=== PATIENT | male | born 1995 | race Caucasian/White ===

== ENCOUNTER 2017-01-26 06:15 | Emergency (ER) | payer OTHER ==
--- NOTE | 2017-01-26 07:21 | ED ORDER SUMMARY ---
..... Patient: PEYTON GRAHAM OrderSheet [facility] VisitID: [id number] [place] [address] 21y, M Registration Date/Time: 01/26/2017 ORDER SHEET Weight: 77.1 kg (stated) Allergies: No Known Drug Allergy GENERAL ORDERS: Chest 2V Urgent (06:01/26/2017 PHutchinson DO) (Ack 6:31 IJurca ER Tech1) (7:12 LSullivan R.N.) Color Blender (Continuous) (:01/26/2017 PHutchinson DO) (6:31 DDavis R.N.) (Ack 6:31 IJurca ER Tech1) UA-Culture if indicated Urgent (:01/26/2017 PHutchinson DO) (Ack 6:31 IJurca ER Tech1) (Cancelled: Physician Order7:23 RMarsden R.N.) Cardiac Panel Stat (:01/26/2017 PHutchinson DO) (6:31 DDavis R.N.) (Ack 6:31 IJurca ER Tech1) BNP Urgent (:01/26/2017 PHutchinson DO) (6:31 DDavis R.N.) (Ack 6:31 IJurca ER Tech1) Amylase Urgent (:01/26/2017 PHutchinson DO) (6:31 DDavis R.N.) (Ack 6:31 IJurca ER Tech1) TSH Urgent (:01/26/2017 PHutchinson DO) (6:31 DDavis R.N.) (Ack 6:31 IJurca ER Tech1) ESR Urgent (:01/26/2017 PHutchinson DO) (6:31 DDavis R.N.) (Ack 6:31 IJurca ER Tech1) Pulse oximeter (:01/26/2017 PHutchinson DO) (6:31 DDavis R.N.) (Ack 6:31 IJurca ER Tech1) EKG - ER Stat (:01/26/2017 PHutchinson DO) (6:31 DDavis R.N.) (Ack 6:31 IJurca ER Tech1) Vitals (06:28 01/26/2017 [facility]) (6:31 DDavis R.N.) (Ack 6:31 IJurca ER Tech1) CRP Urgent (06:41 01/26/2017 [facility]) (Ack 6:43 IJurca ER Tech1) (6:57 DDavis R.N.) MEDICATION ORDERS: Aspirin PO 325 mg (NOW) (06:28 01/26/2017 [facility]) (Ack 6:29 RCollier R.N.) (6:34 RCollier R.N.) IV FLUIDS: IV NS : initial bolus 500 mL (1000 mL/hr), then 250 mL/hr for X2 (NOW) (06:28 01/26/2017 [facility]) (Ack 6:29 RCollier R.N.) (6:34 RCollier R.N.) ORDER SHEET NOTES: [Electronically signed by Caprice Cherry R.N. (07:39 01/26/2017)] [Electronically signed by Emeka Kent DO (07:44 01/26/2017)] [Electronically locked/signed by Caprice Cherry R.N. (07:39 01/26/2017)]
--- NOTE | 2017-01-26 07:21 | ED CLINICAL REPORT ---
Clinical Report - Physicians/Mid Levels [facility] [address] [place] [address] 01/26/2017 6:17 Patient: PEYTON GRAHAM Time Seen: 06:27. Arrived- By private vehicle. Historian- patient. HISTORY OF PRESENT ILLNESS Chief Complaint: CHEST DISCOMFORT. At its maximum, severity described as moderate. When seen in the E.D., severity described as mild. Modifying factors- worsened by exertion, movement and deep breaths. Relieved by rest. This started today and is still present. It was gradual in onset and has been waxing/waning. Onset during rest and light activity. It is described as sharp and well localized and it is described as located in the left chest area. No radiation. No nausea or vomiting. He has had difficulty breathing. Similar symptoms previously: Recent medical care: The patient was seen recently at another facility in a clinic. Diagnosis: (pericarditis). REVIEW OF SYSTEMS No fever, chills, pedal edema, calf pain or fainting episodes. No headache, sore throat, blurred vision, abdominal pain or black stools. No difficulty with urination, skin rash, joint pain or bloody stools. The patient has had a mild cough. All systems otherwise negative, except as recorded above. PAST HISTORY See nurses notes. Pericarditis. Surgeries: Appendectomy. SOCIAL HISTORY Never smoker. No alcohol use or drug use. Residence: recently "lost about all my family" Is a local resident. ADDITIONAL NOTES The nursing notes have been reviewed. PHYSICAL EXAM Vital Signs: 01/26/2017 06:24 BP: 140/92. HR: 74. RR: 15. O2 saturation: 100%. Temp: 97.7 F. Pain level now: 5/10. Appearance: Alert. Oriented X3. Anxious. Patient in mild distress. Eyes: Pupils equal, round and reactive to light. Eyes normal inspection. No scleral icterus or pale conjunctivae. ENT: Pharynx normal. No tonsillar exudate. The mucous membranes are not dry. Neck: Normal inspection. Neck supple. No JVD, carotid bruit, meningeal signs, lymphadenopathy or thyromegaly. CVS: Normal heart rate and rhythm. Heart sounds normal. Pulses normal. Respiratory: No respiratory distress. Chest pain reproducible with palpation of the anterior chest wall (left side). Breath sounds normal. No decreased air movement, rales, rhonchi, wheezes or prolonged expiration. Abdomen: Soft and nontender. No mass. Back: Normal external inspection. No CVA tenderness. Skin: Skin warm and dry. Normal skin color. No rash. Normal skin turgor. Extremities: Extremities exhibit normal ROM. No calf tenderness. No lower extremity edema. Neuro: Oriented X 3. No motor deficit. LABS, X-RAYS, AND EKG EKG: EKG time: (06:28). Normal sinus rhythm. Rate: 75. Normal P waves. Normal MIGUELANGEL. Normal QRS complex. Normal axis. J-point elevation in lead II, III, aVF, V3, V4, V5 and V6 (inferolaterally - consider pericarditis). The study has been interpreted contemporaneously by me. The EKG appears to be a good tracing. Rhythm Strip #1: Normal sinus rhythm. Regular rhythm. Narrow QRS complexes. No ectopy. Chest X-ray: No acute disease. Normal lung markings present. Normal heart size. Mediastinum normal. Great vessels normal. Soft tissues normal. No infiltrate. Views: PA and lateral. Technique: good. The X-rays were interpreted contemporaneously by me. A comparison with prior films reveals that the findings are unchanged (no change from CXR done 12/30/2016). Laboratory Tests: CBC w Diff: (AMI: 01/26/2017 06:25) ( MsgRcvd 01/26/2017 06:53) Final results Test Result Flag Units (Reference) WHITE BLOOD COUNT 7.6 K/uL (4.5-11.5) RED BLOOD COUNT 4.89 M/uL (4.50-5.90) HEMOGLOBIN 14.3 gm/dL (13.5-17.5) HEMATOCRIT 42.6 % (41.0-53.0) MEAN CELL VOLUME 87 fL (80-100) MEAN CORPUSCULAR HGB 29 pg (26-34) MEAN CORPUSCULAR HGB CONC 34 g/dL (31-37) RED CELL DISTRIBUTION WIDTH 13.2 % (11.6-14.8) PLATELET COUNT 228 K/uL (150-400) NEUTROPHIL % 49.4 L % (50-75) LYMPH % 38.2 % (25-40) MONO % 10.1 % (3-14) EOSINOPHIL % 1.9 % (0-4) BASOPHIL % 0.4 % (0-2) SED RATE WESTERGREN 1 mm/hr (0-15) [id number]: (AMI: 01/26/2017 06:25) ( [facility] 01/26/2017 07:01) Final results Test Result Flag Units (Reference) C-REACTIVE PROTEIN < 0.2 mg/dL (0.0-0.9) BNP: (AMI: 01/26/2017 06:25) ( [facility] 01/26/2017 06:52) Final results Test Result Flag Units (Reference) B-TYPE NATRIURETIC PEPTIDE < 5.0 L pg/ml (5-100) CHEM 13 PANEL: (AMI: 01/26/2017 06:25) ( [facility] 01/26/2017 07:01) Final results Test Result Flag Units (Reference) GLUCOSE 90 mg/dL (70-110) BUN 12 mg/dL (7-18) CREATININE 0.8 mg/dL (0.6-1.3) Estimated GFR >60 mL/min Estimated GFR- >60 mL/min Note: Persistent reduction over 3 months in eGFR<60 mL/min/1.73 m2 defines CKD. Patients with eGFR values>=60 mL/min/1.73 m2 may also have CKD if evidence ofpersistent proteinuria. Additional information may be foundat www.kidney.org. SODIUM 143 mmol/L (136-145) POTASSIUM 3.7 mmol/L (3.5-5.1) CHLORIDE 106 mmol/L (98-107) CARBON DIOXIDE 30 mmol/L (21-32) CALCIUM 9.4 mg/dL (8.5-10.1) TOTAL PROTEIN 7.6 g/dL (6.4-8.2) ALBUMIN 4.6 g/dL (3.3-5.0) BILIRUBIN, TOTAL 0.4 mg/dL (0.0-1.0) ALKALINE PHOSPHATASE 86 U/L (46-116) AST (SGOT) 12 L U/L (15-37) ALT (SGPT) 21 U/L (12-78) MAGNESIUM 2.0 mg/dL (1.8-2.4) AMYLASE 42 U/L (25-115) CPK 95 U/L (24-260) TROPONIN I <0.05 L ng/mL (0.00-1.5) TROPONIN REFERENCE RANGE:<0.1 NEGATIVE0.1-1.5 INDETERMINANT>1.5 POSITIVE THYROID STIMULATING HORMONE 8.752 H uIU/mL (0.34-3.74) . Pulse Oximetry: 01/26/2017 06:24 O2 saturation: 100%. (FIO2 - room air). Interpretation: normal. PROGRESS AND PROCEDURES Course of Care: Labs all normal now including CRP and ESR. ECG findings are c/w early repol. CXR is unchanged and cardiac silhouette / mediastinum is normal. Doubt pericarditis now. He has definite chest wall tenderness on exam (which seems to reproduce his subjective complaint). Patient/family counseled. Old ED records reviewed. Disposition: Discharged. Condition: stable and improved. CLINICAL IMPRESSION Atypical chest pain .12 lead EKG performed. Chest wall pain .12 lead EKG performed. Essential hypertension. INSTRUCTIONS Drink plenty of fluids. Warnings: Further evaluation is necessary. It is very important to follow up with a physician. GENERAL WARNINGS: Return or contact your physician immediately if your condition worsens or changes unexpectedly, if not improving as expected, or if other problems arise. Prescription Medications: Ibuprofen 600mg tablets: take 1 tablet orally every 8 hours as needed for pain. Dispense thirty (30). No refills. Follow-up: [facility] is [facility] walk-in clinic available 7 days per week for your convenience in about two days. Screening today revealed the patient's blood pressure to be in the hypertensive range. The patient should follow up with a primary care provider for blood pressure management. (Electronically signed by Emeka Kent DO 01/26/2017 7:44)
--- NOTE | 2017-01-26 07:21 | ED NURSING NOTES ---
Clinical Report - Nurses [facility] [place] [address] 01/26/2017 6:17 [id number] Triage time 06:25. Acuity: LEVEL 3. Chief Complaint: CHEST PAIN. Alert. --06:28 Ancelmo Waters R.N. 06:24 01/26/17. BP: 140/92. HR: 74. RR: 15. O2 saturation: 100% on room air. Temp: 97.7 F (oral). Pain level now: 03/01. --06:28 Ancelmo Waters R.N. Weight: 77.1 kg stated. Height/Length: 78 inches Per Patient. BMI: 19.6. --06:29 Ancelmo Waters R.N. Medications Naproxen Oral. --06:25 Ancelmo Waters R.N. Allergies No Known Drug Allergy. --06:25 Ancelmo Waters R.N. History Arrived by private vehicle. Historian: patient. This started today. He has had difficulty breathing. SOCIAL HX: Never smoker. No alcohol use or drug use. SELF HARM ASSESSMENT: A self harm assessment was performed. The patient answered "no" to the question "Do you have thoughts of harming or killing yourself?" and "Are you here because you tried to hurt yourself?". He has been placed under supervision. FALL RISK ASSESSMENT: Fall risk assessment completed. No fall risk identified. NUTRITIONAL RISK ASSESSMENT: The nutritional risk assessment revealed no deficiencies. FUNCTIONAL ASSESSMENT: Functional assessment: no impairments noted. LEARNING NEEDS ASSESSMENT: The learning needs assessment revealed no barriers. SKIN INTEGRITY ASSESSMENT: Skin integrity risk assessment completed. No skin integrity risk identified. --06:28 Ancelmo Waters R.N. PROBLEMS: Pericarditis. --06:26 Ancelmo Waters R.N. ADDITIONAL SURGERIES: Appendectomy. --06:26 Ancelmo Waters R.N. Interventions ID band on patient. To treatment room. --06:28 Jt, Ancelmo, R.N. PHYSICAL ASSESSMENT Ambulatory to room. GENERAL / NEURO / PSYCH: Alert. Oriented X 4. Appears anxious. ( pt states having chest pain starting around 0300 this morning and states that it feels similar to a previous episode of pericarditis.). HEENT: Mucous membranes are pink. RESPIRATORY: Respirations not labored. Left upper costochondral tenderness. The tenderness is well-localized. Breath sounds within normal limits. CVS: Normal sinus rhythm noted. Heart sounds within normal limits. Capillary refill less than 2 seconds. GI / : Abdomen soft and nontender. SKIN: Skin is warm and dry. Normal skin turgor. Skin is non-tender. --06:31 Ancelmo Waters R.N. NURSING PROGRESS NOTES case monitor, pulse oximeter and NIBP monitor placed on patient. Patient gowned. Head of bed elevated. Two patient identifiers checked. Call light placed in reach. Side rails up x 1. Bed placed in lowest position. Brakes of bed on. Patient ready for evaluation- chart flagged. Patient waiting for evaluation. --06:29 Ancelmo Waters R.N. 06:29 01/26/2017 Site #1 started via IV in the right antecubital space with an 20g angiocath, with aseptic technique and good blood return; one attempt. Blood drawn: rainbow set. Labeled in the presence of the patient and sent to the lab. Saline lock flushed with 10 mL saline. --06:29 Danielle Read R.N. ( Patient NSR on school bus monitor). --06:32 Ancelmo Waters R.N. 06:32 01/26/2017 Started bag #1 1000 mL IV Fluids IV NS (Saline); at 1000 mL/hr via site #1 via IV pump. Allergies verified and confirmed 5 rights. IV patency established. IV site checked: no pain, redness, or swelling. IV flushed thoroughly pre- and post-medication administration. --06:34 Danielle Read R.N. 06:34 01/26/2017 Aspirin PO Tablets 325 mg given. Allergies verified and confirmed 5 rights. --06:34 Danielle Read R.N. ( urinal placed at bedside, sample requested). --06:36 Danielle Read R.N. EKG time: (0628 AM). EKG was ordered, performed by a tech and shown to the ED physician. --06:57 Bernice Garcia ( Report given to Caprice Stanley RN.). --07:02 Ancelmo aWters R.N. ( Report also given to Nathaly Louis RN). --07:03 Ancelmo Waters R.N. 07:04 01/26/17. Care transferred and report received (from DAWOOD Tyson). --07:04 Caprice Cherry R.N. 07:14 01/26/2017 IV Fluids IV NS via IV site #1 Rate Changed: bag #1 decreased to 250 mL/hr via IV pump. IV patency established. IV site checked: no pain, redness, or swelling. IV flushed thoroughly. Confirmed 5 Rights. --07:14 Caprice Cherry R.N. 07:14 01/26/17. --07:14 Caprice Cherry R.N. 07:01/26/17. BP: 128/78. HR: 74. RR: 14. O2 saturation: 97%. Temp: deferred. Pain level now: 11/01. --07:15 Caprice Cherry R.N. 07:15 01/26/17. --07:15 Caprice Cherry R.N. 07:38 01/26/2017 IV Fluids IV NS Discontinued: bag #1 discontinued upon discharge. Total amount infused: 800 mL. IV patency established. IV site checked: no pain, redness, or swelling. IV flushed thoroughly. --07:38 Caprice Cherry R.N. DISPOSITION / DISCHARGE 07:14 01/26/17. BP: 128/78. HR: 74. RR: 14. O2 saturation: 97%. Temp: deferred. Pain level now: 11/01. --07:35 Caprice Cherry R.N. 07:28 01/26/2017 Site #1 removed upon discharge. Manual pressure and bandaid applied. --07:38 Caprice Cherry R.N. 07:35 01/26/17. No learning barriers present. Discharge instructions provided and reviewed with the patient. Reviewed warnings. Reviewed medication(s). Treatments reviewed. Reviewed referrals. Reviewed diet. Patient verbalized understanding. Written instructions provided in Icelandic. The patient was discharged by the physician. He was discharged home. He left the Emergency Department ambulatory and via private vehicle. --07:35 Caprice Cherry R.N. 07:38 01/26/17. --07:38 Caprice Cherry R.N. Locked/Released at 01/26/2017 7:39 by Caprice Cherry R.N.
--- NOTE | 2017-01-26 07:21 | ED NURSING NOTES ---
Clinical Report - Nurses [facility] [place] [address] 01/26/2017 6:17 [id number] Triage time 06:25. Acuity: LEVEL 3. Chief Complaint: CHEST PAIN. Alert. --06:28 Ancelmo Waters R.N. 06:24 01/26/17. BP: 140/92. HR: 74. RR: 15. O2 saturation: 100% on room air. Temp: 97.7 F (oral). Pain level now: 03/01. --06:28 Ancelmo Waters R.N. Weight: 77.1 kg stated. Height/Length: 78 inches Per Patient. BMI: 19.6. --06:29 Ancelmo Waters R.N. Medications Naproxen Oral. --06:25 Ancelmo Waters R.N. Allergies No Known Drug Allergy. --06:25 Ancelmo Waters R.N. History Arrived by private vehicle. Historian: patient. This started today. He has had difficulty breathing. SOCIAL HX: Never smoker. No alcohol use or drug use. SELF HARM ASSESSMENT: A self harm assessment was performed. The patient answered "no" to the question "Do you have thoughts of harming or killing yourself?" and "Are you here because you tried to hurt yourself?". He has been placed under supervision. FALL RISK ASSESSMENT: Fall risk assessment completed. No fall risk identified. NUTRITIONAL RISK ASSESSMENT: The nutritional risk assessment revealed no deficiencies. FUNCTIONAL ASSESSMENT: Functional assessment: no impairments noted. LEARNING NEEDS ASSESSMENT: The learning needs assessment revealed no barriers. SKIN INTEGRITY ASSESSMENT: Skin integrity risk assessment completed. No skin integrity risk identified. --06:28 Ancelmo Waters R.N. PROBLEMS: Pericarditis. --06:26 Ancelmo Waters R.N. ADDITIONAL SURGERIES: Appendectomy. --06:26 Ancelmo Waters R.N. Interventions ID band on patient. To treatment room. --06:28 Jt, Ancelmo, R.N. PHYSICAL ASSESSMENT Ambulatory to room. GENERAL / NEURO / PSYCH: Alert. Oriented X 4. Appears anxious. ( pt states having chest pain starting around 0300 this morning and states that it feels similar to a previous episode of pericarditis.). HEENT: Mucous membranes are pink. RESPIRATORY: Respirations not labored. Left upper costochondral tenderness. The tenderness is well-localized. Breath sounds within normal limits. CVS: Normal sinus rhythm noted. Heart sounds within normal limits. Capillary refill less than 2 seconds. GI / : Abdomen soft and nontender. SKIN: Skin is warm and dry. Normal skin turgor. Skin is non-tender. --06:31 Ancelmo Waters R.N. NURSING PROGRESS NOTES laboratory monitor, pulse oximeter and NIBP monitor placed on patient. Patient gowned. Head of bed elevated. Two patient identifiers checked. Call light placed in reach. Side rails up x 1. Bed placed in lowest position. Brakes of bed on. Patient ready for evaluation- chart flagged. Patient waiting for evaluation. --06:29 Ancelmo Waters R.N. 06:29 01/26/2017 Site #1 started via IV in the right antecubital space with an 20g angiocath, with aseptic technique and good blood return; one attempt. Blood drawn: rainbow set. Labeled in the presence of the patient and sent to the lab. Saline lock flushed with 10 mL saline. --06:29 Danielle Read R.N. ( Patient NSR on media monitor). --06:32 Ancelmo Waters R.N. 06:32 01/26/2017 Started bag #1 1000 mL IV Fluids IV NS (Saline); at 1000 mL/hr via site #1 via IV pump. Allergies verified and confirmed 5 rights. IV patency established. IV site checked: no pain, redness, or swelling. IV flushed thoroughly pre- and post-medication administration. --06:34 Danielle Read R.N. 06:34 01/26/2017 Aspirin PO Tablets 325 mg given. Allergies verified and confirmed 5 rights. --06:34 Danielle Read R.N. ( urinal placed at bedside, sample requested). --06:36 Danielle Read R.N. EKG time: (0628 AM). EKG was ordered, performed by a tech and shown to the ED physician. --06:57 Bernice Garcia ( Report given to Caprice Stanley RN.). --07:02 Ancelmo Waters R.N. ( Report also given to Nathaly Louis RN). --07:03 Ancelmo Waters R.N. 07:04 01/26/17. Care transferred and report received (from DAWOOD yTson). --07:04 Caprice Cherry R.N. 07:14 01/26/2017 IV Fluids IV NS via IV site #1 Rate Changed: bag #1 decreased to 250 mL/hr via IV pump. IV patency established. IV site checked: no pain, redness, or swelling. IV flushed thoroughly. Confirmed 5 Rights. --07:14 Caprice Cherry R.N. 07:14 01/26/17. --07:14 Caprice Cherry R.N. 07:01/26/17. BP: 128/78. HR: 74. RR: 14. O2 saturation: 97%. Temp: deferred. Pain level now: 11/01. --07:15 Caprice Cherry R.N. 07:15 01/26/17. --07:15 Caprice Cherry R.N. 07:38 01/26/2017 IV Fluids IV NS Discontinued: bag #1 discontinued upon discharge. Total amount infused: 800 mL. IV patency established. IV site checked: no pain, redness, or swelling. IV flushed thoroughly. --07:38 Caprice Cherry R.N. DISPOSITION / DISCHARGE 07:14 01/26/17. BP: 128/78. HR: 74. RR: 14. O2 saturation: 97%. Temp: deferred. Pain level now: 11/01. --07:35 Caprice Cherry R.N. 07:28 01/26/2017 Site #1 removed upon discharge. Manual pressure and bandaid applied. --07:38 Caprice Cherry R.N. 07:35 01/26/17. No learning barriers present. Discharge instructions provided and reviewed with the patient. Reviewed warnings. Reviewed medication(s). Treatments reviewed. Reviewed referrals. Reviewed diet. Patient verbalized understanding. Written instructions provided in [place] Islander. The patient was discharged by the physician. He was discharged home. He left the Emergency Department ambulatory and via private vehicle. --07:35 Caprice Cherry R.N. 07:38 01/26/17. --07:38 Caprice Cherry R.N. Locked/Released at 01/26/2017 7:39 by Caprice Cherry R.N.
--- NOTE | 2017-01-26 07:21 | ED ORDER SUMMARY ---
..... Patient: PEYTON GRAHAM OrderSheet [facility] VisitID: [id number] [place] [address] 21y, M Registration Date/Time: 01/26/2017 ORDER SHEET Weight: 77.1 kg (stated) Allergies: No Known Drug Allergy GENERAL ORDERS: Chest 2V Urgent (06:01/26/2017 PHutchinson DO) (Ack 6:31 IJurca ER Tech1) (7:12 LSullivan R.N.) Dairy Nutritionist (Continuous) (:01/26/2017 PHutchinson DO) (6:31 DDavis R.N.) (Ack 6:31 IJurca ER Tech1) UA-Culture if indicated Urgent (:01/26/2017 PHutchinson DO) (Ack 6:31 IJurca ER Tech1) (Cancelled: Physician Order7:23 RMarsden R.N.) Cardiac Panel Stat (:01/26/2017 PHutchinson DO) (6:31 DDavis R.N.) (Ack 6:31 IJurca ER Tech1) BNP Urgent (:01/26/2017 PHutchinson DO) (6:31 DDavis R.N.) (Ack 6:31 IJurca ER Tech1) Amylase Urgent (:01/26/2017 PHutchinson DO) (6:31 DDavis R.N.) (Ack 6:31 IJurca ER Tech1) TSH Urgent (:01/26/2017 PHutchinson DO) (6:31 DDavis R.N.) (Ack 6:31 IJurca ER Tech1) ESR Urgent (:01/26/2017 PHutchinson DO) (6:31 DDavis R.N.) (Ack 6:31 IJurca ER Tech1) Pulse oximeter (:01/26/2017 PHutchinson DO) (6:31 DDavis R.N.) (Ack 6:31 IJurca ER Tech1) EKG - ER Stat (:01/26/2017 PHutchinson DO) (6:31 DDavis R.N.) (Ack 6:31 IJurca ER Tech1) Vitals (06:28 01/26/2017 [facility]) (6:31 DDavis R.N.) (Ack 6:31 IJurca ER Tech1) CRP Urgent (06:41 01/26/2017 [facility]) (Ack 6:43 IJurca ER Tech1) (6:57 DDavis R.N.) MEDICATION ORDERS: Aspirin PO 325 mg (NOW) (06:28 01/26/2017 [facility]) (Ack 6:29 RCollier R.N.) (6:34 RCollier R.N.) IV FLUIDS: IV NS : initial bolus 500 mL (1000 mL/hr), then 250 mL/hr for X2 (NOW) (06:28 01/26/2017 [facility]) (Ack 6:29 RCollier R.N.) (6:34 RCollier R.N.) ORDER SHEET NOTES: [Electronically signed by Caprice Cherry R.N. (07:39 01/26/2017)] [Electronically signed by Emeka Kent DO (07:44 01/26/2017)] [Electronically locked/signed by Caprice Cherry R.N. (07:39 01/26/2017)]
--- NOTE | 2017-01-26 07:21 | ED CLINICAL REPORT ---
Clinical Report - Physicians/Mid Levels [facility] [address] [place] [address] 01/26/2017 6:17 Patient: PEYTON GRAHAM Time Seen: 06:27. Arrived- By private vehicle. Historian- patient. HISTORY OF PRESENT ILLNESS Chief Complaint: CHEST DISCOMFORT. At its maximum, severity described as moderate. When seen in the E.D., severity described as mild. Modifying factors- worsened by exertion, movement and deep breaths. Relieved by rest. This started today and is still present. It was gradual in onset and has been waxing/waning. Onset during rest and light activity. It is described as sharp and well localized and it is described as located in the left chest area. No radiation. No nausea or vomiting. He has had difficulty breathing. Similar symptoms previously: Recent medical care: The patient was seen recently at another facility in a clinic. Diagnosis: (pericarditis). REVIEW OF SYSTEMS No fever, chills, pedal edema, calf pain or fainting episodes. No headache, sore throat, blurred vision, abdominal pain or black stools. No difficulty with urination, skin rash, joint pain or bloody stools. The patient has had a mild cough. All systems otherwise negative, except as recorded above. PAST HISTORY See nurses notes. Pericarditis. Surgeries: Appendectomy. SOCIAL HISTORY Never smoker. No alcohol use or drug use. Residence: recently "lost about all my family" Is a local resident. ADDITIONAL NOTES The nursing notes have been reviewed. PHYSICAL EXAM Vital Signs: 01/26/2017 06:24 BP: 140/92. HR: 74. RR: 15. O2 saturation: 100%. Temp: 97.7 F. Pain level now: 5/10. Appearance: Alert. Oriented X3. Anxious. Patient in mild distress. Eyes: Pupils equal, round and reactive to light. Eyes normal inspection. No scleral icterus or pale conjunctivae. ENT: Pharynx normal. No tonsillar exudate. The mucous membranes are not dry. Neck: Normal inspection. Neck supple. No JVD, carotid bruit, meningeal signs, lymphadenopathy or thyromegaly. CVS: Normal heart rate and rhythm. Heart sounds normal. Pulses normal. Respiratory: No respiratory distress. Chest pain reproducible with palpation of the anterior chest wall (left side). Breath sounds normal. No decreased air movement, rales, rhonchi, wheezes or prolonged expiration. Abdomen: Soft and nontender. No mass. Back: Normal external inspection. No CVA tenderness. Skin: Skin warm and dry. Normal skin color. No rash. Normal skin turgor. Extremities: Extremities exhibit normal ROM. No calf tenderness. No lower extremity edema. Neuro: Oriented X 3. No motor deficit. LABS, X-RAYS, AND EKG EKG: EKG time: (06:28). Normal sinus rhythm. Rate: 75. Normal P waves. Normal MIGUELANGEL. Normal QRS complex. Normal axis. J-point elevation in lead II, III, aVF, V3, V4, V5 and V6 (inferolaterally - consider pericarditis). The study has been interpreted contemporaneously by me. The EKG appears to be a good tracing. Rhythm Strip #1: Normal sinus rhythm. Regular rhythm. Narrow QRS complexes. No ectopy. Chest X-ray: No acute disease. Normal lung markings present. Normal heart size. Mediastinum normal. Great vessels normal. Soft tissues normal. No infiltrate. Views: PA and lateral. Technique: good. The X-rays were interpreted contemporaneously by me. A comparison with prior films reveals that the findings are unchanged (no change from CXR done 12/30/2016). Laboratory Tests: CBC w Diff: (AMI: 01/26/2017 06:25) ( MsgRcvd 01/26/2017 06:53) Final results Test Result Flag Units (Reference) WHITE BLOOD COUNT 7.6 K/uL (4.5-11.5) RED BLOOD COUNT 4.89 M/uL (4.50-5.90) HEMOGLOBIN 14.3 gm/dL (13.5-17.5) HEMATOCRIT 42.6 % (41.0-53.0) MEAN CELL VOLUME 87 fL (80-100) MEAN CORPUSCULAR HGB 29 pg (26-34) MEAN CORPUSCULAR HGB CONC 34 g/dL (31-37) RED CELL DISTRIBUTION WIDTH 13.2 % (11.6-14.8) PLATELET COUNT 228 K/uL (150-400) NEUTROPHIL % 49.4 L % (50-75) LYMPH % 38.2 % (25-40) MONO % 10.1 % (3-14) EOSINOPHIL % 1.9 % (0-4) BASOPHIL % 0.4 % (0-2) SED RATE WESTERGREN 1 mm/hr (0-15) [id number]: (AMI: 01/26/2017 06:25) ( [facility] 01/26/2017 07:01) Final results Test Result Flag Units (Reference) C-REACTIVE PROTEIN < 0.2 mg/dL (0.0-0.9) BNP: (AMI: 01/26/2017 06:25) ( [facility] 01/26/2017 06:52) Final results Test Result Flag Units (Reference) B-TYPE NATRIURETIC PEPTIDE < 5.0 L pg/ml (5-100) CHEM 13 PANEL: (AMI: 01/26/2017 06:25) ( [facility] 01/26/2017 07:01) Final results Test Result Flag Units (Reference) GLUCOSE 90 mg/dL (70-110) BUN 12 mg/dL (7-18) CREATININE 0.8 mg/dL (0.6-1.3) Estimated GFR >60 mL/min Estimated GFR- >60 mL/min Note: Persistent reduction over 3 months in eGFR<60 mL/min/1.73 m2 defines CKD. Patients with eGFR values>=60 mL/min/1.73 m2 may also have CKD if evidence ofpersistent proteinuria. Additional information may be foundat www.[email or web address].org. SODIUM 143 mmol/L (136-145) POTASSIUM 3.7 mmol/L (3.5-5.1) CHLORIDE 106 mmol/L (98-107) CARBON DIOXIDE 30 mmol/L (21-32) CALCIUM 9.4 mg/dL (8.5-10.1) TOTAL PROTEIN 7.6 g/dL (6.4-8.2) ALBUMIN 4.6 g/dL (3.3-5.0) BILIRUBIN, TOTAL 0.4 mg/dL (0.0-1.0) ALKALINE PHOSPHATASE 86 U/L (46-116) AST (SGOT) 12 L U/L (15-37) ALT (SGPT) 21 U/L (12-78) MAGNESIUM 2.0 mg/dL (1.8-2.4) AMYLASE 42 U/L (25-115) CPK 95 U/L (24-260) TROPONIN I <0.05 L ng/mL (0.00-1.5) TROPONIN REFERENCE RANGE:<0.1 NEGATIVE0.1-1.5 INDETERMINANT>1.5 POSITIVE THYROID STIMULATING HORMONE 8.752 H uIU/mL (0.34-3.74) . Pulse Oximetry: 01/26/2017 06:24 O2 saturation: 100%. (FIO2 - room air). Interpretation: normal. PROGRESS AND PROCEDURES Course of Care: Labs all normal now including CRP and ESR. ECG findings are c/w early repol. CXR is unchanged and cardiac silhouette / mediastinum is normal. Doubt pericarditis now. He has definite chest wall tenderness on exam (which seems to reproduce his subjective complaint). Patient/family counseled. Old ED records reviewed. Disposition: Discharged. Condition: stable and improved. CLINICAL IMPRESSION Atypical chest pain .12 lead EKG performed. Chest wall pain .12 lead EKG performed. Essential hypertension. INSTRUCTIONS Drink plenty of fluids. Warnings: Further evaluation is necessary. It is very important to follow up with a physician. GENERAL WARNINGS: Return or contact your physician immediately if your condition worsens or changes unexpectedly, if not improving as expected, or if other problems arise. Prescription Medications: Ibuprofen 600mg tablets: take 1 tablet orally every 8 hours as needed for pain. Dispense thirty (30). No refills. Follow-up: [facility] is a walk-in clinic available 7 days per week for your convenience in about two days. Screening today revealed the patient's blood pressure to be in the hypertensive range. The patient should follow up with a primary care provider for blood pressure management. (Electronically signed by Emeka Kent DO 01/26/2017 7:44)
--- NOTE | 2017-01-26 07:35 | DIAGNOSTIC IMAGING REPORT ---
PROCEDURE: XR CHEST 2 VIEW INDICATION: CHEST PAIN TECHNIQUE: Two views. COMPARISON: 12/30/2016 from [facility]. FINDINGS: The cardiomediastinal contour and central vasculature are within normal limits. The lungs are clear without focal consolidation, pleural effusion, or pneumothorax. The visualized osseous structures are intact. IMPRESSION: 1. Normal chest.
--- NOTE | 2017-01-26 07:35 | DIAGNOSTIC IMAGING REPORT ---
PROCEDURE: XR CHEST 2 VIEW INDICATION: CHEST PAIN TECHNIQUE: Two views. COMPARISON: 12/30/[address] [facility]. FINDINGS: The cardiomediastinal contour and central vasculature are within normal limits. The lungs are clear without focal consolidation, pleural effusion, or pneumothorax. The visualized osseous structures are intact. IMPRESSION: 1. Normal chest.
--- NOTE | 2017-01-26 07:44 | ED MED RECONCILIATION SUMMARY ---
Patient: PEYTON GRAHAM Medication Reconciliation Report [facility] VisitID: [id number] [address] [place] [address] 21y, M Registration Date/Time: 01/26/2017 Weight: 77.1 kg Height/Length: 78 in. BMI: 19.6 ALLERGIES: No Known Drug Allergy The patient's Home Medications are listed below: THE FOLLOWING MEDICATIONS NEED TO BE RECONCILED: Naproxen Oral The source(s) of the original Home Medication information: Not obtained. The following Medications were given to the patient in the Emergency Department: Aspirin [PO] PO 325 mg, administered: 01/26/2017 6:34:00 AM IV NS IV Fluids bolus 0, then 1000 mL/hr, administered: 01/26/2017 6:32:00 AM The following Medications were prescribed to the patient: Ibuprofen 600mg tablets: take 1 tablet orally every 8 hours as needed for pain. Dispense thirty (30). No refills. -- Emeka Kent,
--- NOTE | 2017-01-26 07:44 | ED DISCHARGE INSTRUCTIONS ---
Patient: PEYTON GRAHAM General Instructions [facility] VisitID: [id number] [place] [address] 21y, M Registration Date/Time: 01/26/2017 Atypical chest pain .12 lead EKG performed. Chest wall pain .12 lead EKG performed. Essential hypertension. INSTRUCTIONS Drink plenty of fluids. Warnings: Further evaluation is necessary. It is very important to follow up with a physician. GENERAL WARNINGS: Return or contact your physician immediately if your condition worsens or changes unexpectedly, if not improving as expected, or if other problems arise. Prescription Medications: Ibuprofen 600mg tablets: take 1 tablet orally every 8 hours as needed for pain. Dispense thirty (30). No refills. Follow-up: Follow up with your doctor [facility] - there is a walk-in clinic available 7 days per week for your convenience in about two days. Screening today revealed the patient's blood pressure to be in the hypertensive range. The patient should follow up with a primary care provider for blood pressure management. ADDITIONAL INFORMATION Chest Pain, Noncardiac Based on your visit today, the exact cause of your chest pain is not certain. Your condition does not seem serious and your pain does not appear to be coming from your heart. However, sometimes the signs of a serious problem take more time to appear. Therefore, please watch for the warning signs listed below. Home Care: Rest today and avoid strenuous activity. Take any prescribed medicine as directed. Follow Up with your doctor or this facility as instructed or if you do not start to feel better within 24 hours. Get Prompt Medical Attention if any of the following occur: A change in the type of pain: if it feels different, becomes more severe, lasts longer, or begins to spread into your shoulder, arm, neck, jaw or back Shortness of breath or increased pain with breathing Cough with dark colored sputum (phlegm) or blood Weakness, dizziness, or fainting Fever of 100.4F (38C) or higher, or as directed by your healthcare provider Swelling, pain or redness in one leg Chest Wall Pain: Costochondritis The chest pain that you have had today is caused by Costochondritis. This condition is due to an inflammation of the cartilage joining the ribs to the breastbone. It is not caused by heart or lung problems. Although the exact cause for costochondritis is not known, it often occurs during times of emotional stress. It can be painful, but it is not dangerous. It usually disappears within one to two weeks, but may recur. Rarely, a more serious condition may cause symptoms similar to costochondritis; therefore, watch for the warning signs listed below. Home Care: If you feel that emotional stress is a cause of your condition, try to identify sources of that stress. It may not be obvious! Learn ways to deal with the stress in your life such as regular exercise, muscle relaxation, meditation, or simply taking time out for yourself. For more information about this, consult your doctor or go to a local bookstore and review books and tapes available on the subject of stress reduction. You may use acetaminophen (Tylenol) or ibuprofen (Motrin, Advil) to control pain, unless another pain medicine was prescribed. [ NOTE: If you have liver disease or ever had a stomach ulcer, talk with your doctor before using these medicines.] The use of heat (hot wet compress or heating pad) with or without local analgesic creams (Deep Heat Rub, Travon Houser) will be helpful to reduce pain. Follow Up with your doctor as directed or sooner if you do not start to improve within the next two days. Get Prompt Medical Attention if any of the following occur: A change in the type of pain: if it feels different, becomes more severe, lasts longer, or spreads into your shoulder, arm, neck, jaw or back Shortness of breath or increased pain with breathing Weakness, dizziness, or fainting Cough with dark colored sputum (phlegm) or blood Abdominal pain Dark red or black stools Fever of 100.4F (38C) or higher, or as directed by your healthcare provider High Blood Pressure -- To Be Confirmed [No Tx] Your blood pressure was higher today than normal. Sometimes anxiety or pain can cause a temporary rise in blood pressure that later returns to normal. If your blood pressure is high on one measurement, this does not mean that you have hypertension (a chronic illness). However, you must have your blood pressure measured again within the next few days to find out if its still high. A normal blood pressure is 120/80 or less. The first (top) number is the "systolic" pressure. The second (bottom) number is the "diastolic" pressure. Hypertension exists when either the top number is 140 or higher, OR the bottom number is 90 or higher on repeated measurements. Blood pressure in the range of 120-140 (systolic) or 80-89 (diastolic) is considered "pre-hypertension". This means your are at risk for getting hypertension. You should have regular blood pressure checks to be sure your blood pressure is not rising. Home Care: Measure your blood pressure on 3 different days and write down the results. This can be done at your doctor's office or this facility. Some pharmacies and grocery stores offer automated blood pressure machines for your use. Follow Up: If your blood pressure is "high" (over 120/80) on 2 out of 3 days, you will need to follow up with your doctor for further evaluation and treatment. DO NOT PUT THIS OFF! Untreated high blood pressure increases the risk for heart attack, also known as acute myocardial infarction, or AMI, and stroke. It is a treatable condition. Get Prompt Medical Attention if any of the following occur: Chest pain or shortness of breath Severe headache Throbbing or rushing sound in the ears Nosebleed Sudden severe abdominal pain Extreme drowsiness, confusion or fainting Dizziness or vertigo (dizziness with spinning sensation) Weakness of an arm or leg or one side of the face Difficulty with speech or vision Ibuprofen Oral tablet What is this medicine? IBUPROFEN (eye BYOO proe fen) is a non-steroidal anti-inflammatory drug (NSAID). It is used for dental pain, fever, headaches or migraines, osteoarthritis, rheumatoid arthritis, or painful monthly periods. It can also relieve minor aches and pains caused by a cold, flu, or sore throat. How should I use this medicine? Take this medicine by mouth with a glass of water. Follow the directions on the prescription label. Take this medicine with food if your stomach gets upset. Try to not lie down for at least 10 minutes after you take the medicine. Take your medicine at regular intervals. Do not take your medicine more often than directed. A special MedGuide will be given to you by the pharmacist with each prescription and refill. Be sure to read this information carefully each time. Talk to your steam station supervisor regarding the use of this medicine in children. Special care may be needed. What side effects may I notice from receiving this medicine? Side effects that you should report to your doctor or health healthcare associate as soon as possible: allergic reactions like skin rash, itching or hives, swelling of the face, lips, or tongue black or bloody stools, blood in the urine or in vomit breathing problems changes in vision chest pain general ill feeling or flu-like symptoms nausea or vomiting redness, blistering, peeling or loosening of the skin, including inside the mouth slurred speech or weakness on one side of the body stomach pain unexplained weight gain or swelling unusually weak or tired yellowing of eyes or skin Side effects that usually do not require medical attention (report to your doctor or health healthcare associate if they continue or are bothersome): constipation or diarrhea dizziness gas or heartburn stomach upset What may interact with this medicine? Do not take this medicine with any of the following medications: cidofovir ketorolac methotrexate pemetrexed This medicine may also interact with the following medications: alcohol aspirin diuretics lithium other drugs for inflammation like prednisone warfarin What if I miss a dose? If you miss a dose, take it as soon as you can. If it is almost time for your next dose, take only that dose. Do not take double or extra doses. Where should I keep my medicine? Keep out of the reach of children. Store at room temperature between 15 and 30 degrees C (59 and 86 degrees F). Keep container tightly closed. Throw away any unused medicine after the expiration date. What should I tell my health care provider before I take this medicine? They need to know if you have any of these conditions: asthma cigarette smoker drink more than 3 alcohol containing drinks a day heart disease or circulation problems such as heart failure or leg edema (fluid retention) high blood pressure kidney disease liver disease stomach bleeding or ulcers an unusual or allergic reaction to ibuprofen, aspirin, other NSAIDS, other medicines, foods, dyes, or preservatives or trying to get breast-feeding What should I watch for while using this medicine? Tell your doctor or healthcare professional if your symptoms do not start to get better or if they get worse. This medicine does not prevent heart attack or stroke. In fact, this medicine may increase the chance of a heart attack or stroke. The chance may increase with longer use of this medicine and in people who have heart disease. If you take aspirin to prevent heart attack or stroke, talk with your doctor or health healthcare associate. Do not take other medicines that contain aspirin, ibuprofen, or naproxen with this medicine. Side effects such as stomach upset, nausea, or ulcers may be more likely to occur. Many medicines available without a prescription should not be taken with this medicine. This medicine can cause ulcers and bleeding in the stomach and intestines at any time during treatment. Ulcers and bleeding can happen without warning symptoms and can cause . To reduce your risk, do not smoke cigarettes or drink alcohol while you are taking this medicine. You may get drowsy or dizzy. Do not drive, use machinery, or do anything that needs mental alertness until you know how this medicine affects you. Do not stand or sit up quickly, especially if you are an older patient. This reduces the risk of dizzy or fainting spells. This medicine can cause you to bleed more easily. Try to avoid damage to your teeth and gums when you brush or floss your teeth. You have been given the following additional information: Chest Pain, Noncardiac Chest Wall Pain, Costochondritis Hypertension, To Be Confirmed Ibuprofen Oral tablet (Electronically signed by Emeka Kent DO 01/26/2017 7:44)
--- NOTE | 2017-01-26 07:44 | ED MAR SUMMARY ---
..... Medication Administration Record [facility] [address] [place] [address] Patient: PEYTON GRAHAM Visit ID: [id number] 21y, M Weight: 77.1 kg Height/Length: 78 in BMI: 19.6 ALLERGIES: No Known Drug Allergy Start 06:32 01/26/2017 Danielle Read RJamal, Stop 07:38 01/26/2017 Caprice Cherry R.N. Medication Administered: IV NS (SALINE), Dose: IV Fluids, Rate: 1000 mL/hr, Dispensed: 1000 mL bag, Site: #1 right AC. Medication Ordered: IV NS : initial bolus 500 mL (1000 mL/hr), then 250 mL/hr for X2 (NOW). Given 06:34 01/26/2017 Danielle Read RGulshanNGulshan Medication Administered: ASPIRIN [PO], Dose: 325 mg Tablets PO. Medication Ordered: Aspirin PO 325 mg (NOW).
--- NOTE | 2017-01-26 07:44 | ED MAR SUMMARY ---
..... Medication Administration Record [facility] [address] [place] [address] Patient: PEYTON GRAHAM Visit ID: [id number] 21y, M Weight: 77.1 kg Height/Length: 78 in BMI: 19.6 ALLERGIES: No Known Drug Allergy Start 06:32 01/26/2017 Danielle Read RJamal, Stop 07:38 01/26/2017 Caprice Cherry R.N. Medication Administered: IV NS (SALINE), Dose: IV Fluids, Rate: 1000 mL/hr, Dispensed: 1000 mL bag, Site: #1 right AC. Medication Ordered: IV NS : initial bolus 500 mL (1000 mL/hr), then 250 mL/hr for X2 (NOW). Given 06:34 01/26/2017 Danielle Read RGulshanNGulshan Medication Administered: ASPIRIN [PO], Dose: 325 mg Tablets PO. Medication Ordered: Aspirin PO 325 mg (NOW).
--- NOTE | 2017-01-26 07:44 | ED MED RECONCILIATION SUMMARY ---
Patient: PEYTON GRAHAM Medication Reconciliation Report [facility] VisitID: [id number] [address] [place] [address] 21y, M Registration Date/Time: 01/26/2017 Weight: 77.1 kg Height/Length: 78 in. BMI: 19.6 ALLERGIES: No Known Drug Allergy The patient's Home Medications are listed below: THE FOLLOWING MEDICATIONS NEED TO BE RECONCILED: Naproxen Oral The source(s) of the original Home Medication information: Not obtained. The following Medications were given to the patient in the Emergency Department: Aspirin [PO] PO 325 mg, administered: 01/26/2017 6:34:00 AM IV NS IV Fluids bolus 0, then 1000 mL/hr, administered: 01/26/2017 6:32:00 AM The following Medications were prescribed to the patient: Ibuprofen 600mg tablets: take 1 tablet orally every 8 hours as needed for pain. Dispense thirty (30). No refills. -- Emeka Kent,
== END 2017-01-26 07:35 | disposition home or self-care (01) ==
LOC: ED SRH 06:15
DX: R07.89 Other chest pain (principal); R03.0 Elevated blood-pressure reading, without diagnosis of hypertension; Z86.79 Personal history of other diseases of the circulatory system
CPT/HCPCS: 90100; 90616; 91320; 91585; 92530; 92610; 92720; 93140; 95059; 95150